=== PATIENT | male | born 1975 | race Caucasian/White ===

== ENCOUNTER 2017-08-31 13:28 | Emergency (ER) | payer OTHER ==
[~2017-08-31] VITALS: Ht 172.7 cm; Wt 90.0 kg
[~2017-08-31 13:28] MED LIST: CEFA500C6; DIAZ5 PO; DOXY100T PO; MECL25 PO; VIST25CA PO
[2017-08-31 13:33] VITALS: BP 140/80; PULSE 100; RESP 17; TEMP 97.2; O2SAT 97
[2017-08-31] MEDS ORDERED: SODIUM CHLOR 0.9% 1000 ML INJ 1,000 ML IV SCH (13:49)
[2017-08-31] MEDS ORDERED: CELE20TA PO (13:52)
[2017-08-31] MEDS ORDERED: CIPR-9 PO (13:52)
[2017-08-31] MEDS ORDERED: AMBI10TA PO (13:52)
[2017-08-31] MEDS ORDERED: KLON2TAB PO (13:52)
[2017-08-31] MEDS ORDERED: XANA1TAB2 PO (13:52)
[2017-08-31] MEDS ORDERED: PHENAZOPYRIDINE HCL 100 MG TAB PO ONE (14:00)
[2017-08-31] MEDS ORDERED: SODIUM CHLORIDE 0.9% FLUSH 10 ML FLUSH IV FLUSH PRN (14:00)
[2017-08-31 14:03] VITALS: O2SAT 100
[2017-08-31] MEDS ORDERED: DIATRIZOATE MEGLUM/DIATRIZOATE SOD 9 ML CUP ONE (14:05)
[2017-08-31 14:14] LABS: AUTOMATED NEUTROPHIL # 4.2 TH/MM3 (1.8-7.7); BASOPHIL % 0.7 % (0.0-2.0); EOSINOPHIL # 0.2 TH/MM3 (0-0.4); EOSINOPHIL % 3.8 % (0.0-4.0); HEMATOCRIT 48.3 % (39.0-51.0); HEMOGLOBIN 16.4 GM/DL (13.0-17.0); LYMPH % 21.7 % (9.0-44.0); LYMPHOCYTE # 1.4 TH/MM3 (1.0-4.8); MEAN CORPUSCULAR HEMOGLOBIN 30.5 PG (27.0-34.0); MEAN CORPUSCULAR HGB CONC 33.9 % (32.0-36.0); MEAN PLATELET VOLUME 7.8 FL (7.0-11.0); MONO % 6.7 % (0.0-8.0); MONOCYTE # 0.4 TH/MM3 (0-0.9); NEUT % 67.1 % (16.0-70.0); PLATELET COUNT 202 TH/MM3 (150-450); RED BLOOD COUNT 5.37 MIL/MM3 (4.50-5.90); RED CELL DISTRIBUTION WIDTH 12.3 % (11.6-17.2); WHITE BLOOD COUNT 6.2 TH/MM3 (4.0-11.0)
[2017-08-31 14:14] LABS: BILIRUBIN, URINE NEG (NEG); BLOOD, URINE NEG (NEG); GLUCOSE,URINE NEG (NEG); KETONE, URINE NEG (NEG); NITRITE,URINE NEG (NEG); PH, URINE 5.5 (5.0-8.5); URINE LEUKOCYTE ESTERASE NEG (NEG)
[2017-08-31 14:23] LABS: CHLORIDE 105 MEQ/L (98-107); SODIUM (NA) 144 MEQ/L (136-145)
[2017-08-31 14:24] LABS: URINE COLOR YELLOW (YELLW/STRAW)
[2017-08-31 14:25] LABS: AMORPHOUS SEDIMENT, URINE FEW; SQUAMOUS EPITHELIAL CELL URINE 0-5 /hpf (0-5)
[2017-08-31 14:27] LABS: ALBUMIN 3.7 GM/DL (3.4-5.0); BICARBONATE 31.3 MEQ/L (21.0-32.0); BLOOD UREA NITROGEN 15 MG/DL (7-18); GLUCOSE,RANDOM 131 MG/DL (74-106); LIPASE 148 U/L (73-393)
[2017-08-31 14:30] LABS: ALT (GPT) 35 U/L (12-78); AST (GOT) 16 U/L (15-37); GLOMERULAR FILTRATION RATE 60 ML/MIN (>89)
[2017-08-31 14:31] LABS: TOTAL BILIRUBIN ADULT 0.4 MG/DL (0.2-1.0); TOTAL PROTEIN 7.9 GM/DL (6.4-8.2)
[2017-08-31 14:32] LABS: ALKALINE PHOSPHATASE 68 U/L (45-117)
[2017-08-31] MEDS ORDERED: IOHEXOL 350 MG/ML 10 ML VIAL (for RAD DIAG) IVCONTRAST ONE (15:22)
[2017-08-31 15:30] VITALS: BP 145/87; PULSE 74; RESP 18; O2SAT 97
--- NOTE | 2017-08-31 15:33 | RADRPT ---
EXAM DATE/TIME: 08/31/2017 15:11 [facility] COMPARISON: No previous studies available for comparison. INDICATIONS : Bilateral lower quadrant pain, worse on the right. Nausea and constipation x 4 days. IV CONTRAST: 85 cc Omnipaque 350 (iohexol) IV ORAL CONTRAST: Prescribed oral contrast ingested. RADIATION DOSE: 14.26 CTDIvol (mGy) MEDICAL HISTORY : Asthma. SURGICAL HISTORY : None. ENCOUNTER: Initial ACUITY: 1 day PAIN SCALE: 7/10 LOCATION: Bilateral lower quadrant TECHNIQUE: Volumetric scanning of the abdomen and pelvis was performed. Using automated exposure control and ad justment of the mA and/or kV according to patient size, radiation dose was kept as low as reasonably achievable to obtain optimal diagnostic quality images. DICOM format image data is available electro nically for review and comparison. FINDINGS: LOWER LUNGS: The visualized lower lungs are clear. LIVER: Homogeneous density without lesion. There is no dilation of the biliary tree. No calcified gallston es. SPLEEN: Normal size without lesion. PANCREAS: Within normal limits. KIDNEYS: Normal in size and shape. There is no mass, stone or hydronephrosis. ADRENAL GLANDS: Within normal limits. VASCULAR: There is no aortic aneurysm. BOWEL/MESENTERY: The stomach, small bowel, and colon demonstrate no acute abnormality. There is no free intraperitone al air or fluid. The appendix is normal ABDOMINAL WALL: Within normal limits. RETROPERITONEUM: There is no lymphadenopathy. BLADDER: No wall thickening or mass. REPRODUCTIVE: Within normal limits. INGUINAL: There is no lymphadenopathy or hernia. MUSCULOSKELETAL: Within normal limits for patient age. CONCLUSION: Normal examination. The appendix is normal. No evidence of bowel obstruction. No etiology for right l ower quadrant pain is seen. Bharat Aparicio MD on August 31, 2017 at 15:29 Board Certified Radiologist. This report was verified electronically.
[2017-08-31] MEDS ORDERED: PHEN-525 PO (15:56)
[2017-08-31] MEDS ORDERED: DICY10 PO (15:56)
--- NOTE | 2017-08-31 15:57 | PD ---
HPI Chief Complaint: Abdominal Pain Time Seen by Provider: 13:41 Travel History International Travel<30 days: No Contact w/Intl Traveler<30days: No Traveled to known affect area: No History of Present Illness HPI The patient's 42. He rested ER describing dysuria and burning in the region of the suprapubic abdomen. He has been constipated for about 6 days. He reports intermittent constipation over the past few months. No fever. No blood in the stool. No vomiting. Duration of pain has been several days. No testicular pain. No penile discharge. PFSH Past Medical History Asthma: Yes Anxiety: Yes Depression: Yes Diminished Hearing: Yes (LEFT EAR HEARING LOSS) Past Surgical History Ear Surgery: Yes Social History Alcohol Use: Yes (SOMETIMES) Tobacco Use: No Substance Use: No Allergies-Medications (Allergen,Severity, Reaction): Coded Allergies: Sulfa (Sulfonamide Antibiotics) (Unverified Allergy, Mild, 08/31/17) Reported Meds & Prescriptions Reported Meds & Active Scripts Active Phenazopyridine (Phenazopyridine HCl) 100 Mg Tab 100 Mg PO Q8H PRN Bentyl (Dicyclomine HCl) 10 Mg Cap 10 Mg PO TID PRN Reported Xanax (Alprazolam) 1 Mg Tab 1 Mg PO Q6H PRN Klonopin (Clonazepam) 2 Mg Tab 2 Mg PO DAILY Ambien (Zolpidem Tartrate) 10 Mg Tab 10 Mg PO HS PRN Celexa (Citalopram Hydrobromide) 20 Mg Tab 20 Mg PO DAILY Cipro (Ciprofloxacin HCl) 500 Mg Tab 500 Mg PO BID Review of Systems Except as stated in HPI: all other systems reviewed are Neg General / Constitutional: No: Fever Physical Exam Narrative GENERAL: 42-year-old male well-nourished well-developed no acute distress pleasant SKIN: Focused skin assessment warm/dry. HEAD: Atraumatic. Normocephalic. EYES: Pupils equal and round. No scleral icterus. No injection or drainage. ENT: No nasal bleeding or discharge. Mucous membranes pink and moist. NECK: Trachea midline. No JVD. CARDIOVASCULAR: Regular rate and rhythm. No murmur appreciated. RESPIRATORY: No accessory muscle use. Clear to auscultation. Breath sounds equal bilaterally. GASTROINTESTINAL: Trace tenderness towards the right side. Soft. No distention. GENITOURINARY: There is a piercing through the undersurface of the distal shaft through the urethral meatus. There is no erythema tenderness or discharge. MUSCULOSKELETAL: No obvious deformities. No clubbing. No cyanosis. No edema. NEUROLOGICAL: Awake and alert. No obvious cranial nerve deficits. Motor grossly within normal limits. Normal speech. PSYCHIATRIC: Appropriate mood and affect; insight and judgment normal. Data Data Last Documented VS Vital Signs Date Time Temp Pulse Resp B/P (MAP) Pulse Ox O2 Delivery O2 Flow Rate FiO2 08/31/17 16:13 08/31/17 15:30 74 18 97 Room Air 08/31/17 13:33 97.2 Vital Signs Date Time Temp Pulse Resp B/P (MAP) Pulse Ox O2 Delivery O2 Flow Rate FiO2 08/31/17 16:13 08/31/17 15:30 74 18 145/87 (106) 97 Room Air 08/31/17 14:03 100 Room Air 08/31/17 13:33 97.2 100 17 140/80 (100) 97 Orders Orders Complete Blood Count With Diff (08/31/17 13:49) Comprehensive Metabolic Panel (08/31/17 13:49) Lipase (08/31/17 13:49) Urinalysis - C+S If Indicated (08/31/17 13:49) Ct Abd/Pel W Iv Contrast(Rout) (08/31/17 13:49) Iv Access Insert/Monitor (08/31/17 13:49) Ecg Monitoring (08/31/17 13:49) Oximetry (08/31/17 13:49) Sodium Chlor 0.9% 1000 Ml Inj (Ns 1000 M (08/31/17 13:49) Sodium Chloride 0.9% Flush (Ns Flush) (08/31/17 14:00) Phenazopyridine (Pyridium) (08/31/17 14:00) Oral Contrast - Adult (08/31/17 13:53) Diatrizoate Liq ( Gastroview Liq) (08/31/17 14:05) Iohexol 350 Inj (Omnipaque 350 Inj) (08/31/17 15:22) Ed Discharge Order (08/31/17 15:57) Labs Laboratory Tests Test 08/31/17 13:58 08/31/17 14:00 Urine Collection Type CLEAN CATCH Urine Color YELLOW Urine Turbidity CLEAR Urine pH 5.5 Urine Specific [place] 1.017 Urine Protein NEG mg/dL Urine Glucose (UA) NEG mg/dL Urine Ketones NEG mg/dL Urine Occult Blood NEG Urine Nitrite NEG Urine Bilirubin NEG Urine Leukocyte Esterase NEG Urine Squamous Epithelial Cells 0-5 /hpf Urine Amorphous Sediment FEW Microscopic Urinalysis Comment CULT NOT INDICATED Urine Collection Time 1358 White Blood Count 6.2 TH/MM3 Red Blood Count 5.37 MIL/MM3 Hemoglobin 16.4 GM/DL Hematocrit 48.3 % Mean Corpuscular Volume 90.0 FL Mean Corpuscular Hemoglobin 30.5 PG Mean Corpuscular Hemoglobin Concent 33.9 % Red Cell Distribution Width 12.3 % Platelet Count 202 TH/MM3 Mean Platelet Volume 7.8 FL Neutrophils (%) (Auto) 67.1 % Lymphocytes (%) (Auto) 21.7 % Monocytes (%) (Auto) 6.7 % Eosinophils (%) (Auto) 3.8 % Basophils (%) (Auto) 0.7 % Neutrophils # (Auto) 4.2 TH/MM3 Lymphocytes # (Auto) 1.4 TH/MM3 Monocytes # (Auto) 0.4 TH/MM3 Eosinophils # (Auto) 0.2 TH/MM3 Basophils # (Auto) 0.0 TH/MM3 CBC Comment DIFF FINAL Differential Comment Blood Urea Nitrogen 15 MG/DL Creatinine 1.30 MG/DL Random Glucose 131 MG/DL Total Protein 7.9 GM/DL Albumin 3.7 GM/DL Calcium Level 9.0 MG/DL Alkaline Phosphatase 68 U/L Aspartate Amino Transf (AST/SGOT) 16 U/L Alanine Aminotransferase (ALT/SGPT) 35 U/L Total Bilirubin 0.4 MG/DL Sodium Level 144 MEQ/L Potassium Level 4.1 MEQ/L Chloride Level 105 MEQ/L Carbon Dioxide Level 31.3 MEQ/L Anion Gap 8 MEQ/L Estimat Glomerular Filtration Rate 60 ML/MIN Lipase 148 U/L [facility] Medical Decision Making Medical Screen Exam Complete: Yes Emergency Medical Condition: Yes Medical Record Reviewed: Yes Differential Diagnosis Gastritis, pancreatitis, appendicitis, acute cholecystitis, ascending cholangitis, AAA, perforated viscous, mesenteric ischemia, hepatitis, cystitis, hydronephrosis/hydroureter/nephroureter calculus, mesenteric adenitis, biliary colic Narrative Course CBC & BMP Diagram 08/31/17 14:00 Total Protein 7.9, Albumin 3.7, Calcium Level 9.0, Alkaline Phosphatase 68, Aspartate Amino Transf (AST/SGOT) 16, Alanine Aminotransferase (ALT/SGPT) 35, Total Bilirubin 0.4 Urinalysis is normal The lipase is normal Last Impressions Abdomen/Pelvis CT 08/31/17 1349 Signed Impressions: Service Date/Time: August 15:11 - CONCLUSION: Normal examination. The appendix is normal. No evidence of bowel obstruction. No etiology for right lower quadrant pain is seen. Bharat Aparicio MD Etiology of this time is unclear. CT shows an increased number of intraperitoneal lymph nodes. This could be consistent with mesenteric adenitis. Etiology of the patient's suprapubic/pelvic burning type pain is somewhat unclear. Follow-up with urology may be beneficial. Constipation remedies discussed. Patient's ready for discharge. Diagnosis Primary Impression: Constipation Qualified Codes: K59.00 - Constipation, unspecified Additional Impressions: Bladder pain Dysuria Referrals: Martín Lara MD call for appointment Med/Other Pt SpecificInfo: Prescription(s) given Scripts Phenazopyridine (Phenazopyridine) 100 Mg Tab 100 MG PO Q8H Y for DYSURIA, #10 TAB 0 Refills Prov: King Baldwin MD 08/31/17 Dicyclomine (Bentyl) 10 Mg Cap 10 MG PO TID Y for Bowel Management, #10 CAP 0 Refills Prov: King Baldwin MD 08/31/17 Disposition: 01 DISCHARGE HOME Condition: Stable King Baldwin MD Aug 31, 2017 15:57
== END 2017-08-31 16:14 | disposition home or self-care (01) ==
LOC: PHED 13:28
DX: K59.00 Constipation, unspecified (principal); R30.0 Dysuria; J45.909 Unspecified asthma, uncomplicated
CPT/HCPCS: 74177; 80053; 81001; 83690; 85025; 96360; 99285; J7030; Q9963; Q9967

== ENCOUNTER 2017-10-12 20:27 | Emergency (ER) | payer OTHER ==
[~2017-10-12] VITALS: Ht 172.7 cm; Wt 89.2 kg
[~2017-10-12 20:27] MED LIST changes: +AMBI10TA PO; -CEFA500C6; +CELE20TA PO; +CIPR-9 PO; -DIAZ5 PO; +DICY10 PO; -DOXY100T PO; +KLON2TAB PO; -MECL25 PO; +PHEN-525 PO; -VIST25CA PO; +XANA1TAB2 PO
[2017-10-12 20:55] VITALS: BP 136/80; PULSE 114; RESP 18; TEMP 100.7; O2SAT 95
[2017-10-12 21:26] VITALS: BP 120/71; PULSE 101; RESP 18; TEMP 99.3; O2SAT 100
--- NOTE | 2017-10-12 21:29 | PD ---
HPI Chief Complaint: Cold / Flu Symptoms Time Seen by Provider: 21:22 Travel History International Travel<30 days: No Contact w/Intl Traveler<30days: No Traveled to known affect area: No History of Present Illness HPI The patient is a 42-year-old male that complains of a mostly nonproductive cough , global headache of gradual onset, generalized myalgias for 1 day. He is in emergency department nurse. He has had his flu shot this year. He has a fever for one day. He denies being short of breath but does feel wheezing. PFSH Past Medical History Asthma: Yes Anxiety: Yes Depression: Yes Diminished Hearing: Yes (LEFT EAR HEARING LOSS) Respiratory: Yes (ASTHMA) Past Surgical History Ear Surgery: Yes Social History Alcohol Use: Yes (SOMETIMES) Tobacco Use: No Substance Use: No Allergies-Medications (Allergen,Severity, Reaction): Coded Allergies: Sulfa (Sulfonamide Antibiotics) (Verified Allergy, Mild, 10/12/17) Reported Meds & Prescriptions Reported Meds & Active Scripts Active Reported Xanax (Alprazolam) 1 Mg Tab 1 Mg PO Q6H PRN Klonopin (Clonazepam) 2 Mg Tab 2 Mg PO DAILY Ambien (Zolpidem Tartrate) 10 Mg Tab 10 Mg PO HS PRN Celexa (Citalopram Hydrobromide) 20 Mg Tab 20 Mg PO DAILY Review of Systems Except as stated in HPI: all other systems reviewed are Neg Physical Exam Narrative GENERAL: The patient is alert, oriented 3 in no respiratory distress. His vital signs show temperature 100.7 with a heart rate of 114 and are otherwise normal. He does appear to be moderately dehydrated. SKIN: Focused skin assessment warm/dry. HEAD: Atraumatic. Normocephalic. EYES: Pupils equal and round. No scleral icterus. No injection or drainage. ENT: No nasal bleeding or discharge. Mucous membranes pink and moist. NECK: Trachea midline. No JVD. CARDIOVASCULAR: Regular rate and rhythm. No murmur appreciated. RESPIRATORY: No accessory muscle use. Clear to auscultation. Breath sounds equal bilaterally. GASTROINTESTINAL: Abdomen soft, non-tender, nondistended. Hepatic and splenic margins not palpable. MUSCULOSKELETAL: No obvious deformities. No clubbing. No cyanosis. No edema. NEUROLOGICAL: Awake and alert. No obvious cranial nerve deficits. Motor grossly within normal limits. Normal speech. PSYCHIATRIC: Appropriate mood and affect; insight and judgment normal. Data Data Last Documented VS Vital Signs Date Time Temp Pulse Resp B/P (MAP) Pulse Ox O2 Delivery O2 Flow Rate FiO2 10/12/17 21:34 Room Air 10/12/17 21:26 99.3 101 18 120/71 (87) 100 Orders Orders Complete Blood Count With Diff (10/12/17 21:24) Basic Metabolic Panel (Bmp) (10/12/17 21:24) Influenzae A/B Antigen (10/12/17 21:24) Chest, Pa & Lat (10/12/17 21:24) Sodium Chlor 0.9% 1000 Ml Inj (Ns 1000 M (10/12/17 21:30) Iv Access Insert/Monitor (10/12/17 21:24) Methylprednisolone So Succ Inj (Solumedr (10/12/17 21:30) Albuterol-Ipratropium Neb (Duoneb Neb) (10/12/17 21:30) Ketorolac Inj (Toradol Inj) (10/12/17 22:00) Labs Laboratory Tests Test 10/12/17 22:02 White Blood Count 5.8 TH/MM3 Red Blood Count 5.21 MIL/MM3 Hemoglobin 15.5 GM/DL Hematocrit 46.9 % Mean Corpuscular Volume 90.0 FL Mean Corpuscular Hemoglobin 29.8 PG Mean Corpuscular Hemoglobin Concent 33.1 % Red Cell Distribution Width 11.9 % Platelet Count 140 TH/MM3 Mean Platelet Volume 8.2 FL Neutrophils (%) (Auto) 74.0 % Lymphocytes (%) (Auto) 13.6 % Monocytes (%) (Auto) 11.1 % Eosinophils (%) (Auto) 0.9 % Basophils (%) (Auto) 0.4 % Neutrophils # (Auto) 4.3 TH/MM3 Lymphocytes # (Auto) 0.8 TH/MM3 Monocytes # (Auto) 0.6 TH/MM3 Eosinophils # (Auto) 0.1 TH/MM3 Basophils # (Auto) 0.0 TH/MM3 CBC Comment DIFF FINAL Differential Comment Blood Urea Nitrogen 11 MG/DL Creatinine 1.20 MG/DL Random Glucose 131 MG/DL Calcium Level 8.9 MG/DL Sodium Level 133 MEQ/L Potassium Level 3.4 MEQ/L Chloride Level 100 MEQ/L Carbon Dioxide Level 25.0 MEQ/L Anion Gap 8 MEQ/L Estimat Glomerular Filtration Rate 66 ML/MIN [facility] Medical Decision Making Medical Screen Exam Complete: Yes Emergency Medical Condition: Yes Medical Record Reviewed: Yes Interpretation(s) The influenza A/B antigen is negative for flu a and flu B antigen. The basic metabolic profile shows a GFR of 66, glucose 131, sodium 133 and potassium of 3.4. The chest x-ray shows no acute disease. The CBC is normal except for a platelet count of 140,000. Differential Diagnosis Viral syndrome, flu syndrome, bronchitis, bronchospasm, pneumonia, hypoxemia Narrative Course The patient has a viral syndrome as suggested by his low white count, low platelet count and general symptoms. He fits symptoms for flu syndrome but his flu test is negative. There is no pneumonia seen on chest x-ray. He did get a good response with the DuoNeb therapy and his oximetry is running 94% on room air. This is not ideal oxygenation for a young nonsmoker and he will return to the emergency department if worse. Sepsis Criteria SIRS Criteria (2 or more): Heart rate over 90 Diagnosis Primary Impression: Bronchitis with bronchospasm Additional Impressions: Viral syndrome Mild dehydration Additional Instructions: As we discussed, return to the emergency department for repeat evaluation if you have increasing shortness of breath. Drink plenty liquids, rest and the prednisone is taken one tablet twice daily for 4 days followed by one tablet daily for 4 days. Follow-up with your primary care physician next week. The Motrin is 800 mg 3 times daily taken regularly. Med/Other Pt SpecificInfo: Prescription(s) given Scripts Ibuprofen (Ibuprofen) 800 Mg Tab 800 MG PO TID, #33 TAB 0 Refills Prov: Dale Vogel MD 10/12/17 Prednisone (Prednisone) 50 Mg Tab 50 MG PO BID for 4 days than daily X 4 days, #12 TAB 0 Refills Prov: Dale Vogel MD 10/12/17 Albuterol 8.5 GM Inh (Proair Hfa 8.5 GM Inh) 90 Mcg/Act Aer 2 PUFF INH Q4-6H Y for SHORTNESS OF BREATH, #1 INHALER 0 Refills 108 mcg/actuation Prov: Dale Vogel MD 10/12/17 Disposition: 01 DISCHARGE HOME Condition: Stable Dale Vogel MD Oct 12, 2017 21:29
[2017-10-12] MEDS ORDERED: methylPREDNISolone SOD SUCC 125 MG/2 ML VIAL IV PUSH ONE (21:30)
[2017-10-12] MEDS ORDERED: SODIUM CHLOR 0.9% 1000 ML INJ 1,000 ML IV SCH (21:30)
[2017-10-12] MEDS: RESP: ALBUTEROL 2.5 MG/IPRATROPIUM 0.5 MG NEB (SCH) INH ×3 (21:37→21:57)
[2017-10-12] MEDS ORDERED: KETOROLAC TROMETHAMINE 60 MG/2 ML (IM) VIAL IVP ONE (22:00)
[2017-10-12 22:19] LABS: AUTOMATED NEUTROPHIL # 4.3 TH/MM3 (1.8-7.7); BASOPHIL % 0.4 % (0.0-2.0); EOSINOPHIL # 0.1 TH/MM3 (0-0.4); EOSINOPHIL % 0.9 % (0.0-4.0); HEMATOCRIT 46.9 % (39.0-51.0); HEMOGLOBIN 15.5 GM/DL (13.0-17.0); LYMPH % 13.6 % (9.0-44.0); LYMPHOCYTE # 0.8 TH/MM3 (1.0-4.8); MEAN CORPUSCULAR HEMOGLOBIN 29.8 PG (27.0-34.0); MEAN CORPUSCULAR HGB CONC 33.1 % (32.0-36.0); MEAN PLATELET VOLUME 8.2 FL (7.0-11.0); MONO % 11.1 % (0.0-8.0); MONOCYTE # 0.6 TH/MM3 (0-0.9); PLATELET COUNT 140 TH/MM3 (150-450); RED BLOOD COUNT 5.21 MIL/MM3 (4.50-5.90); RED CELL DISTRIBUTION WIDTH 11.9 % (11.6-17.2); WHITE BLOOD COUNT 5.8 TH/MM3 (4.0-11.0)
[2017-10-12 22:29] LABS: CALCIUM 8.9 MG/DL (8.5-10.1)
[2017-10-12 22:33] LABS: CREATININE 1.2 MG/DL (0.60-1.30)
--- NOTE | 2017-10-12 22:40 | RADRPT ---
EXAM DATE/TIME: 10/12/2017 21:31 [facility] COMPARISON: No previous studies available for comparison. INDICATIONS : Flu like symptoms since yesterday morning. Productive cough and fever. MEDICAL HISTORY : Hypertension. Asthma SURGICAL HISTORY : None. ENCOUNTER: Initial ACUITY: 2 days PAIN SCORE: 0/10 LOCATION: Bilateral chest FINDINGS: PA and lateral views of the chest demonstrate the lungs to be symmetrically aerated without evidence of mass, infiltrate or effusion. The cardiomediastinal contours are unremarkable. Osseous structure s are intact. CONCLUSION: No acute disease. Pio Salinas MD on October 12, 2017 at 22:37 Board Certified Radiologist. This report was verified electronically.
[2017-10-12] MEDS ORDERED: ALBUAER3 INH (23:04)
[2017-10-12] MEDS ORDERED: PRED50 PO (23:04)
[2017-10-12] MEDS ORDERED: IBUP1TAB7 PO (23:08)
[2017-10-12 23:19] VITALS: BP 141/70; PULSE 125; RESP 16; TEMP 98.3; O2SAT 93
== END 2017-10-12 23:41 | disposition home or self-care (01) ==
LOC: PHED 20:27
DX: J40 Bronchitis, not specified as acute or chronic (principal); B34.9 Viral infection, unspecified; E86.0 Dehydration
CPT/HCPCS: 71046; 80048; 85025; 87804; 94640; 94664; 96361; 96374; 96375; 99285; J1885; J2930; J7030

== ENCOUNTER 2017-10-17 13:45 | Emergency (ER) | payer OTHER ==
[~2017-10-17] VITALS: Ht 172.7 cm; Wt 87.0 kg
[~2017-10-17 13:45] MED LIST changes: +ALBUAER3 INH; -CIPR-9 PO; -DICY10 PO; +IBUP1TAB7 PO; -PHEN-525 PO; +PRED50 PO
[2017-10-17 13:48] VITALS: BP 143/81; PULSE 99; RESP 16; TEMP 97.8; O2SAT 92
--- NOTE | 2017-10-17 14:05 | PD ---
HPI Chief Complaint: Cold / Flu Symptoms Time Seen by Provider: 14:01 Travel History International Travel<30 days: No Contact w/Intl Traveler<30days: No Traveled to known affect area: No History of Present Illness HPI 42-year-old male patient with history of asthma, seen last week for flulike symptoms and diagnosed with bronchitis, currently on prednisone and nebulizers, here because he is continuing to have coughing spells, shortness of breath, feeling fatigued, nauseous, and generally weak. He denies any vomiting, fevers , or other issues. He states that his stepdaughter was diagnosed with influenza several days ago. Modifying Factors: None Associated Signs & Symptoms: Coughing, wheezing, shortness of breath, fatigue, nausea, weakness Risk Factors: Asthma, sick contact PFSH Past Medical History Asthma: Yes Anxiety: Yes Depression: Yes Diminished Hearing: Yes (LEFT EAR HEARING LOSS) Respiratory: Yes (ASTHMA) Influenza Vaccination: Yes ?: Not Past Surgical History Ear Surgery: Yes Oral Surgery: Yes Social History Alcohol Use: Yes (SOMETIMES) Tobacco Use: No Substance Use: No Allergies-Medications (Allergen,Severity, Reaction): Coded Allergies: Sulfa (Sulfonamide Antibiotics) (Verified Allergy, Mild, 10/17/17) Reported Meds & Prescriptions Reported Meds & Active Scripts Active Ibuprofen 800 Mg Tab 800 Mg PO TID Prednisone 50 Mg Tab 50 Mg PO BID Proair Hfa 8.5 GM Inh (Albuterol Sulfate) 90 Mcg/Act Aer 2 Puff INH Q4-6H PRN 108 mcg/actuation Reported Xanax (Alprazolam) 1 Mg Tab 1 Mg PO Q6H PRN Klonopin (Clonazepam) 2 Mg Tab 2 Mg PO DAILY Ambien (Zolpidem Tartrate) 10 Mg Tab 10 Mg PO HS PRN Celexa (Citalopram Hydrobromide) 20 Mg Tab 20 Mg PO DAILY Review of Systems Except as stated in HPI: all other systems reviewed are Neg Physical Exam Narrative GENERAL: Well-developed middle-aged male patient currently in mild distress. Awake and oriented 3. SKIN: Focused skin assessment warm/dry. HEAD: Atraumatic. Normocephalic. EYES: Pupils equal and round. No scleral icterus. No injection or drainage. ENT: No nasal bleeding or discharge. Mucous membranes pink and moist. NECK: Trachea midline. No JVD. Supple. CARDIOVASCULAR: Regular rate and rhythm. No murmur appreciated. RESPIRATORY: No accessory muscle use. Mild wheezing throughout. Breath sounds equal bilaterally. GASTROINTESTINAL: Abdomen soft, non-tender, nondistended. Hepatic and splenic margins not palpable. MUSCULOSKELETAL: No obvious deformities. No clubbing. No cyanosis. No edema. NEUROLOGICAL: Awake and alert. No obvious cranial nerve deficits. Motor grossly within normal limits. Normal speech. PSYCHIATRIC: Appropriate mood and affect; insight and judgment normal. Data Data Last Documented VS Vital Signs Date Time Temp Pulse Resp B/P (MAP) Pulse Ox O2 Delivery O2 Flow Rate FiO2 10/17/17 14:15 73 18 131/73 (92) 94 Nasal Cannula 2.00 10/17/17 13:48 97.8 Orders Orders Iv Access Insert/Monitor (10/17/17 14:02) Ecg Monitoring (10/17/17 14:02) Oximetry (10/17/17 14:02) Oxygen Administration (10/17/17 14:02) Chest, Single Ap (10/17/17 14:02) Sodium Chloride 0.9% Flush (Ns Flush) (10/17/17 14:15) Methylprednisolone So Succ Inj (Solumedr (10/17/17 14:15) Albuterol-Ipratropium Neb (Duoneb Neb) (10/17/17 14:15) Complete Blood Count With Diff (10/17/17 14:05) Basic Metabolic Panel (Bmp) (10/17/17 14:05) Albuterol Neb (Albuterol Neb) (10/17/17 15:30) Sodium Chlor 0.9% 1000 Ml Inj (Ns 1000 M (10/17/17 15:45) Potassium Chloride Eff (K-Lyte Cl Eff) (10/17/17 15:45) Ed Discharge Order (10/17/17 16:37) Labs Laboratory Tests Test 10/17/17 14:02 White Blood Count 9.4 TH/MM3 Red Blood Count 5.39 MIL/MM3 Hemoglobin 16.5 GM/DL Hematocrit 48.4 % Mean Corpuscular Volume 89.8 FL Mean Corpuscular Hemoglobin 30.7 PG Mean Corpuscular Hemoglobin Concent 34.2 % Red Cell Distribution Width 11.9 % Platelet Count 188 TH/MM3 Mean Platelet Volume 7.9 FL Neutrophils (%) (Auto) 72.8 % Lymphocytes (%) (Auto) 17.0 % Monocytes (%) (Auto) 8.9 % Eosinophils (%) (Auto) 0.2 % Basophils (%) (Auto) 1.1 % Neutrophils # (Auto) 6.9 TH/MM3 Lymphocytes # (Auto) 1.6 TH/MM3 Monocytes # (Auto) 0.8 TH/MM3 Eosinophils # (Auto) 0.0 TH/MM3 Basophils # (Auto) 0.1 TH/MM3 CBC Comment DIFF FINAL Differential Comment Blood Urea Nitrogen 14 MG/DL Creatinine 0.98 MG/DL Random Glucose 144 MG/DL Calcium Level 8.2 MG/DL Sodium Level 135 MEQ/L Potassium Level 3.3 MEQ/L Chloride Level 102 MEQ/L Carbon Dioxide Level 27.4 MEQ/L Anion Gap 6 MEQ/L Estimat Glomerular Filtration Rate 83 ML/MIN [facility] Medical Decision Making Medical Screen Exam Complete: Yes Emergency Medical Condition: Yes Medical Record Reviewed: Yes Interpretation(s) Laboratory Tests Test 10/17/17 14:02 Neutrophils (%) (Auto) 72.8 % (16.0-70.0) Monocytes (%) (Auto) 8.9 % (0.0-8.0) Random Glucose 144 MG/DL (74-106) Calcium Level 8.2 MG/DL (8.5-10.1) Sodium Level 135 MEQ/L (136-145) Potassium Level 3.3 MEQ/L (3.5-5.1) Estimat Glomerular Filtration Rate 83 ML/MIN (>89) Last 24 hours Impressions Chest X-Ray 10/17/17 1402 Signed Impressions: Service Date/Time: Tuesday, October 17, 2017 14:18 - CONCLUSION: 1. Minimal bibasilar atelectasis. Gil Christianson MD Differential Diagnosis Asthma exacerbation versus bronchitis versus pneumonia versus influenza versus viral syndrome Narrative Course Chest x-ray did not show significant signs of pneumonia. He was given nebulizers and Solu-Medrol in the ER. After for nebulizers, he is feeling improved. His saturations are improved. He had decreased and wheezing. At this point, my plan would be to release him with close follow-up to primary care physician. Return for worsening in symptoms as necessary. The plan has been discussed with him and he states understanding. Diagnosis Primary Impression: Asthma exacerbation Med/Other Pt SpecificInfo: Prescription(s) given Scripts Azithromycin (Zithromax Z-David) 250 Mg Dspk 250 MG PO DIRECTED for Infection, #1 DSPK 0 Refills 500 MG (2 tabs) day 1, then 1 tab days 2-5. Prov: Georgia Williamson MD 10/17/17 Disposition: 01 DISCHARGE HOME Condition: Stable Georgia Williamson MD Oct 17, 2017 14:05
[2017-10-17 14:15] VITALS: BP 131/73; PULSE 73; RESP 18; O2SAT 94
[2017-10-17 14:15] LABS: AUTOMATED NEUTROPHIL # 6.9 TH/MM3 (1.8-7.7); BASOPHIL # 0.1 TH/MM3 (0-0.2); BASOPHIL % 1.1 % (0.0-2.0); EOSINOPHIL % 0.2 % (0.0-4.0); HEMATOCRIT 48.4 % (39.0-51.0); HEMOGLOBIN 16.5 GM/DL (13.0-17.0); LYMPHOCYTE # 1.6 TH/MM3 (1.0-4.8); MEAN CELL VOLUME 89.8 FL (80.0-100.0); MEAN CORPUSCULAR HEMOGLOBIN 30.7 PG (27.0-34.0); MEAN CORPUSCULAR HGB CONC 34.2 % (32.0-36.0); MEAN PLATELET VOLUME 7.9 FL (7.0-11.0); MONO % 8.9 % (0.0-8.0); MONOCYTE # 0.8 TH/MM3 (0-0.9); NEUT % 72.8 % (16.0-70.0); PLATELET COUNT 188 TH/MM3 (150-450); RED BLOOD COUNT 5.39 MIL/MM3 (4.50-5.90); RED CELL DISTRIBUTION WIDTH 11.9 % (11.6-17.2); WHITE BLOOD COUNT 9.4 TH/MM3 (4.0-11.0)
[2017-10-17] MEDS ORDERED: methylPREDNISolone SOD SUCC 125 MG/2 ML VIAL IV PUSH ONE (14:15)
[2017-10-17] MEDS ORDERED: SODIUM CHLORIDE 0.9% FLUSH 10 ML FLUSH IVF PRN (14:15)
[2017-10-17 14:30] LABS: BICARBONATE 27.4 MEQ/L (21.0-32.0); CALCIUM 8.2 MG/DL (8.5-10.1)
[2017-10-17 14:34] LABS: CREATININE 0.98 MG/DL (0.60-1.30)
[2017-10-17] MEDS: RESP: ALBUTEROL 2.5 MG/IPRATROPIUM 0.5 MG NEB (SCH) INH (14:48)
--- NOTE | 2017-10-17 15:08 | RADRPT ---
EXAM DATE/TIME: 10/17/2017 14:18 [facility] COMPARISON: No previous studies available for comparison. INDICATIONS : Flu like symptoms for 1 week. MEDICAL HISTORY : Asthma. SURGICAL HISTORY : None. ENCOUNTER: Initial ACUITY: 1 week PAIN SCORE: 1/10 LOCATION: Bilateral chest FINDINGS: Minimal platelike airspace disease at the lung bases. Cardiomediastinal contours are within normal li mits. Bony thorax is intact. CONCLUSION: 1. Minimal bibasilar atelectasis. Gil Christianson MD on October 17, 2017 at 14:57 Board Certified Radiologist. This report was verified electronically.
[2017-10-17] MEDS: RESP: ALBUTEROL 2.5 MG/3 ML NEB (SCH) INH (15:39)
[2017-10-17] MEDS ORDERED: SODIUM CHLOR 0.9% 1000 ML INJ 1,000 ML IV ONE (15:45)
[2017-10-17] MEDS ORDERED: POTASSIUM CHLORIDE 25 MEQ EFFERVESCENT TAB PO ONE (15:45)
[2017-10-17] MEDS ORDERED: ZITHTAB PO (16:41)
[2017-10-17 16:52] VITALS: BP 141/68
== END 2017-10-17 16:55 | disposition home or self-care (01) ==
LOC: PHED 13:45
DX: J45.901 Unspecified asthma with (acute) exacerbation (principal); F32.9 Major depressive disorder, single episode, unspecified; Z88.2 Allergy status to sulfonamides
CPT/HCPCS: 71045; 80048; 85025; 94640; 94664; 96361; 96374; 99284; J2930; J7030; J7613

== ENCOUNTER 2017-10-28 05:17 | Emergency (ER) | payer OTHER ==
[~2017-10-28] VITALS: Ht 172.7 cm; Wt 87.0 kg
[~2017-10-28 05:17] MED LIST changes: +ZITHTAB PO
[2017-10-28] MEDS ORDERED: TETANUS/DIPHTHERIA TOXOID ADULT 0.5 ML VIAL IM ONE (05:30)
[2017-10-28 05:34] VITALS: BP 150/81; PULSE 95; RESP 16; TEMP 98.5; O2SAT 98
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
== END 2017-10-28 05:56 | disposition home or self-care (01) ==
LOC: NEPC 05:17 → NEPD 05:56
DX: S60.811A Abrasion of right wrist, initial encounter (principal); J45.909 Unspecified asthma, uncomplicated; F41.9 Anxiety disorder, unspecified; F32.9 Major depressive disorder, single episode, unspecified; Z23 Encounter for immunization; Z79.899 Other long term (current) drug therapy; Z88.2 Allergy status to sulfonamides; Y04.0XXA Assault by unarmed brawl or fight, initial encounter; Y99.0 Civilian activity done for income or pay
CPT/HCPCS: 90471; 90714